=== PATIENT | female | born 1995 | race Caucasian/White ===

== ENCOUNTER 2018-04-26 13:56 | Inpatient (IN) ==
[2018-04-26 15:40] LABS: Baso % (Auto) 0.2 % (0.0-2.0); Eos % (Auto) 0.2 % (0.0-4.0); Hematocrit 41.5 % (35.0-46.0); Hemoglobin 13.8 gm/dL (11.6-15.3); Lymph # (Auto) 1.9 th/mm3 (1.0-4.8); Lymph % (Auto) 19.9 % (9.0-44.0); Mean Corpuscular HGB Conc 33.2 % (32.0-36.0); Mean Corpuscular Hemoglobin 30.5 pg (27.0-34.0); Mean Corpuscular Volume 91.7 fL (80.0-100.0); Mean Platelet Volume 8.4 fL (7.0-11.0); Mono # (Auto) 0.7 th/mm3 (0.0-0.9); Neut # (Auto) 7.1 th/mm3 (1.8-7.7); Neut % (Auto) 72.7 % (16.0-70.0); Platelet Count 230 th/mm3 (150-450); Red Blood Count 4.53 mil/mm3 (4.00-5.30); Red Cell Distribution Width 13.2 % (11.6-17.2); White Blood Count 9.8 th/mm3 (4.0-11.0)
[2018-04-26] MEDS ORDERED: Influenza (Quadrivalent) Vaccine 0.5 ML Syringe IM ONE (15:45)
[2018-04-26 15:48] LABS: Amphetamine Screen,Urine Neg (Neg); Barbiturate Screen,Urine Neg (Neg); Cannabinoid Screen,Urine Neg (Neg); Cocaine Screen,Urine Neg (Neg)
[2018-04-26 15:56] LABS: Bacteria,Urine Occasional /hpf; Bilirubin,Urine Negative (Negative); Clarity,Urine Hazy (Clear); Color,Urine Yellow (Yellw/Straw); Glucose,Urine (UA) Negative (Negative); Leukocyte Esterase,Urine Negative (Negative); Mucus,Urine Few /lpf (Occasional); Nitrite,Urine Negative (Negative); Opiate Screen,Urine Neg (Neg); Specific Gravity,Urine 1.009 (1.002-1.035); Squamous Epithelial Cell,Urine 5 /hpf (0-5)
[2018-04-26] MEDS ORDERED: fentaNYL Citrate Inj 100 MCG/2 ML Ampul IV.PUSH PRN ×2 (16:02)
[2018-04-26] MEDS ORDERED: Naloxone Inj 0.4 MG/ML Vial IV.PUSH PRN (16:02)
[2018-04-26] MEDS ORDERED: Sod Chloride 0.9% Inj 1,000 ML IV.CONT PRN (16:02)
[2018-04-26] MEDS ORDERED: Sodium Chlor 0.9% Inj 500 ML IV.SIG PRN (16:02)
[2018-04-26] MEDS ORDERED: Oxytocin 30 Units/500ml Premix 30 UNITS/500 ML BAG IV.SIG ONE (16:15)
[2018-04-26] MEDS ORDERED: Citric Acid/Sodium Citrate Liq 30 ML UDC PO SCH (16:15)
[2018-04-26] MEDS ORDERED: Oxytocin 30 Units/500ml Premix 30 UNITS/500 ML BAG IV.SIG PRN (17:16)
--- NOTE | 2018-04-26 17:23 | P.HPOB ---
History of Present Illness Service: obstetrics Primary Care Physician: No Primary Care Physician History of Present Illness: 22 yo 39 weeks with cervix 2-3 cm and few contractions. Here for induction and augment. Teresa sorto had previous of 9# Weeks Gestation:: 39 Para: 1 : 2 - Inpatient Certification I certify that the inpatient services were ordered in accordance with Medicare regulations governing the order. This includes certification that hospital inpatient services are reasonable and necessary and in the case of services not specified as inpatient-only under 42 CFR 419.22(n), that they are appropriately provided as inpatient services in accordance to with the 2-midnight benchmark under 43 CFR 412.3(e) Estimated Total Length of Stay (Days): 2 Plans for Post Hospital Care: Home Review of Systems All other systems reviewed negative except as stated [facility] - History History Provided By: Patient - Medical / Surgical Hx Neg / Unobtainable Medical Problems Denied: Yes Surgical History: No Previous Surgery ( x1) - Social History I have reviewed the patient's Social History: Yes - Tobacco History Second Hand Smoke Exposure: No Tobacco Use In Past 30 Days: No - Travel History Recent Travel in the [place] Within the Last 8 Weeks: No Recent Travel Out of the Country Within the Last 8 Weeks: No - Immunization History Tetanus Immunization: Unable to Assess Hx Influenza Vaccine This Season: No Medications and Allergies Active Medications: Active Medications Citric Acid/Sodium Citrate (Sodium Citrate/Citric Acid Liq) 30 ml PO [facility] Stop: 04/30/18 16:14 Fentanyl Citrate (Fentanyl Inj) 50 mcg IV.PUSH Q1H PRN PRN Reason: Pain Scale 3 - 5 Fentanyl Citrate (Fentanyl Inj) 100 mcg IV.PUSH Q1H PRN PRN Reason: PAIN SCALE 6 TO 10 Lactated Ringer's (Lr 1000 Ml Inj) 1,000 mls @ 3,000 mls/hr IV.SIG UNSCH PRN PRN Reason: compromise or epidural Sodium Chloride (Ns Inj) 500 mls @ 1,000 mls/hr IV.SIG UNSCH PRN PRN Reason: SEE LABEL COMMENTS Sodium Chloride (Ns Inj) 1,000 mls @ 100 mls/hr IV.CONT .Q10H PRN PRN Reason: SEE LABEL COMMENTS Lactated Ringer's (Lr 1000 Ml Inj) 1,000 mls @ 125 mls/hr IV.CONT .Q8H [place] Oxytocin (Pitocin 30 Units/Ns 500 Ml Premix) 30 units in 500 mls @ 2 mls/hr IV.SIG TITRATE PRN; Protocol PRN Reason: For induction of labor Lidocaine HCl (Xylocaine 1% Inj) 0.1 ml I-DERMAL PRN PRN PRN Reason: For IV start Stop: 04/29/18 16:01 Lidocaine HCl (Xylocaine 1% Inj) 10 ml SQ UNSCH X1 PRN PRN Reason: FOR EPISIOTOMY REPAIR Stop: 04/28/18 16:29 Mineral Oil (Muri-Lube Oil) 10 ml TOPICAL PRN PRN PRN Reason: PRN perineal massage Naloxone HCl (Narcan Inj) 0.1 mg IV.PUSH Q2M PRN PRN Reason: for opiate reversal Allergies Allergy/AdvReac Type Severity Reaction Status Date / Time No Known Allergies Allergy Verified 04/26/18 15:13 Home Medications Medication Instructions Recorded Confirmed Type PNV #[id number] 1 tab PO DAILY 04/26/18 04/26/18 History Exam Vital signs: Vital Signs 04/26/18 14:22 Temperature 98.3 F Pulse Rate 109 H Respiratory Rate 18 Blood Pressure 123/80 Intake & Output 04/25/18 04/26/18 04/26/18 18:59 06:59 18:59 Weight 104.355 kg Other: Weight On Admission 104.326 kg - Constitutional no acute distress - Routine HEENT Exam Head: Present: normocephalic - Routine Neck Exam Present: full ROM - Routine Respiratory Exam Present: CTA bilaterally - Routine Cardiovascular Exam Present: RRR - Routine Abdominal Exam Present: soft, normoactive bowel sounds - Routine Extremities Exam Present: full ROM - Routine Skin Exam Present: intact - Routine Neurological Exam Present: alert, oriented X3 - Additional findings Additional findings: cervix 2-3/80 -2 Results - Labs CBC & Chem 7: 04/26/18 14:43 Labs: Laboratory Results - last 24 hr 04/26/18 04/26/18 04/26/18 14:43 14:43 14:43 WBC 9.8 RBC 4.53 Hgb 13.8 Hct 41.5 MCV 91.7 MCH 30.5 MCHC 33.2 RDW 13.2 Plt Count 230 MPV 8.4 Neut % (Auto) 72.7 H Lymph % (Auto) 19.9 [place] % (Auto) 7.0 Eos % (Auto) 0.2 Baso % (Auto) 0.2 Neut # (Auto) 7.1 Lymph # (Auto) 1.9 [place] # (Auto) 0.7 Eos # (Auto) 0.0 Baso # (Auto) 0.0 WBC Differential . Differential Comment Auto diff final Urine Color Yellow Urine Clarity Hazy H Urine pH 6.0 Ur Specific [place] 1.009 Urine Protein Negative Urine Glucose (UA) Negative Urine Ketones Negative Urine Occult Blood Negative Urine Nitrate Negative Urine Bilirubin Negative Urine Urobilinogen Less than 2 Ur Leukocyte Esterase Negative Urine WBC 1 Ur Squamous Epith Cells 5 Urine Bacteria Occasional H Urine Mucus Few H Micro UA Comment Culture not ind Ur Microscopic Review Not Reportable Urine Culture Comments Culture not ind Urine Opiates Screen Ur Barbiturates Screen Ur Amphetamines Screen U Benzodiazepines Scrn Urine Cocaine Screen U Cannabinoids Screen Blood Type B Positive Antibody Screen Negative 04/26/18 14:43 WBC RBC Hgb Hct MCV MCH MCHC RDW Plt Count MPV Neut % (Auto) Lymph % (Auto) [place] % (Auto) Eos % (Auto) Baso % (Auto) Neut # (Auto) Lymph # (Auto) [place] # (Auto) Eos # (Auto) Baso # (Auto) WBC Differential Differential Comment Urine Color Urine Clarity Urine pH Ur Specific [place] Urine Protein Urine Glucose (UA) Urine Ketones Urine Occult Blood Urine Nitrate Urine Bilirubin Urine Urobilinogen Ur Leukocyte Esterase Urine WBC Ur Squamous Epith Cells Urine Bacteria Urine Mucus Micro UA Comment Ur Microscopic Review Urine Culture Comments Urine Opiates Screen Neg Ur Barbiturates Screen Neg Ur Amphetamines Screen Neg U Benzodiazepines Scrn Neg Urine Cocaine Screen Neg U Cannabinoids Screen Neg Blood Type Antibody Screen Group B Strep: Negative Caprini VTE Risk Assessment Caprini VTE Risk Assessment: No/Low Risk (score <= 1) Caprini Risk Assessment Model: Point Value = 1 Point Value = 2 Point Value = 3 Point Value = 5 Age 41-60 Minor surgery BMI > 25 kg/m2 Swollen legs Varicose veins or History of unexplained or recurrent spontaneous Oral contraceptives or hormone replacement Sepsis (< 1 month) Serious lung disease, including pneumonia (< 1 month) Abnormal pulmonary function Acute myocardial infarction Congestive heart failure (< 1 month) History of inflammatory bowel disease Medical patient at bed rest Age 61-74 Arthroscopic surgery Major open surgery (> 45 min) Laparoscopic surgery (> 45 min) Malignancy Confined to bed (> 72 hours) Immobilizing plaster cast Central venous access Age >= 75 History of VTE Family history of VTE Factor V Leiden Prothrombin [id number] Lupus anticoagulant Anticardiolipin antibodies Elevated serum homocysteine Heparin-induced thrombocytopenia Other congenital or acquired thrombophilia Stroke (< 1 month) Elective arthroplasty Hip, pelvis, or leg fracture Acute spinal cord injury (< 1 month) Prophylaxis Regimen: Total Risk Factor Score Risk Level Prophylaxis Regimen 0-1 Low Early ambulation 2 Moderate Order ONE of the following: *Sequential Compression Device (SCD) *Heparin 5000 units SQ BID 3-4 Higher Order ONE of the following medications: *Heparin 5000 units SQ TID *Enoxaparin/Lovenox 40 mg SQ daily (WT < 150 kg, CrCl > 30 mL/min) *Enoxaparin/Lovenox 30 mg SQ daily (WT < 150 kg, CrCl > 10-29 mL/min) *Enoxaparin/Lovenox 30 mg SQ BID (WT < 150 kg, CrCl > 30 mL/min) AND/OR *Sequential Compression Device (SCD) 5 or more Highest Order ONE of the following medications: *Heparin 5000 units SQ TID (Preferred with Epidurals) *Enoxaparin/Lovenox 40 mg SQ daily (WT < 150 kg, CrCl > 30 mL/min) *Enoxaparin/Lovenox 30 mg SQ daily (WT < 150 kg, CrCl > 10-29 mL/min) *Enoxaparin/Lovenox 30 mg SQ BID (WT < 150 kg, CrCl > 30 mL/min) AND *Sequential Compression Device (SCD) Assessment and Plan - Diagnosis (1) 39 weeks gestation of Code(s): Z3A.39 - 39 weeks gestation of Status: Acute - Plan AROM pitocin
[2018-04-26] MEDS ORDERED: Pantoprazole Inj 40 MG Vial IV.PUSH ONE (18:30)
[2018-04-26] MEDS ORDERED: Bupivacaine PF 0.25% Inj 10 ML Vial ONE (20:34)
[2018-04-26] MEDS ORDERED: Lidocaine PF 1% Inj 5 ML Vial ONE (20:34)
[2018-04-26] MEDS ORDERED: Lidocaaine 1.5%/Epinephrine 1:200,000 PF Inj 5 ML Amp ONE (20:34)
[2018-04-26] MEDS ORDERED: fentaNYL 2MCG-Bupiv 0.125% Epi 150 ML EPIDURAL ONE (20:36)
[2018-04-27] MEDS ORDERED: Lidocaine 1% Inj 50 ML Vial ONE (00:12)
[2018-04-27] MEDS ORDERED: Acetaminophen 325 MG Tablet PO PRN (01:02)
[2018-04-27] MEDS ORDERED: Zolpidem Tartrate 5 MG Tablet PO PRN (01:02)
[2018-04-27] MEDS ORDERED: Witch Hazel 50%/Glyderin 12.5% 40 Pad Jar RECTAL PRN (01:02)
[2018-04-27] MEDS ORDERED: Oxytocin 30 Units/500ml Premix 30 UNITS/500 ML BAG IV.CONT PRN (01:02)
[2018-04-27] MEDS ORDERED: Naloxone Inj 0.4 MG/ML Vial IV.PUSH PRN (01:02)
[2018-04-27] MEDS ORDERED: Bisacodyl 10 MG Supp RECTAL PRN (01:02)
[2018-04-27] MEDS ORDERED: Benzocaine 20% Top Spray 60 ML Can TOPICAL PRN (01:02)
--- NOTE | 2018-04-27 01:08 | P.OBDELI ---
Weeks Gestation: 39 Patient Started Active Labor: Yes Active Labor Start Date: 04/26/18 Active Labor Start Time: 17:00 Medical Induction of Labor: No Artificial Rupture of Membrane: Yes Artificial ROM Date: 04/26/18 Artificial ROM Time: 17:00 Anesthesia: Epidural Episiotomy: none Vaginal Delivery: Normal Presentation: Occiput anterior Nuchal Cord: x1 Delayed Cord Clamping (45 sec): Yes Placenta: Spontaneous delivery, Intact, 3 vessel cord Repair: Chromic running Estimated blood loss (mL): 300 : Female, Single
[2018-04-27] MEDS ORDERED: fentaNYL 2MCG-Bupiv 0.125% Epi 150 ML EPIDURAL PRN (01:21)
[2018-04-27] MEDS ORDERED: fentaNYL Citrate Inj 100 MCG/2 ML Ampul EPIDURAL ONE (01:21)
[2018-04-27] MEDS: Senna/Docusate Sodium 8.6/50 MG Tablet PO SCH ×2 (08:59→20:04)
[2018-04-27] MEDS ORDERED: Measles/Mumps/Rubella Vaccine Inj 0.5 ML Vial SQ ONE (16:00)
[2018-04-27] MEDS ORDERED: Diphtheria/Tetanus/Pertussis Vaccine Inj 0.5 ML Syringe IM ONE (16:00)
[2018-04-28] MEDS: Senna/Docusate Sodium 8.6/50 MG Tablet PO SCH (09:16)
[2018-04-28 09:53] VITALS: BP 127/70; PULSE 80; RESP 16; TEMP 98
--- NOTE | 2018-04-28 16:37 | MD ---
cc: Roc Farmer MD, Dr. DATE OF DISCHARGE: 04/28/2018 ADMITTING DIAGNOSIS: Term . DISCHARGE DIAGNOSES: 1. Term . 2. Delivery. HISTORY OF PRESENT ILLNESS: The patient is a 22-year-old white female; para 1-0-0-1 with an EDC of 04/30/2018. HOSPITAL COURSE: She was admitted for delivery on 04/26/2018; had a spontaneous vaginal delivery. did well. Discharged home excellent condition on 04/28/2018. She was advised NPV, light activity, return to Dr. Almita Reid in [address] Lezama left her a prescription for Percocet 5 one to two p.o. 4 hours p.r.n. pain; #12. She will call with any abnormal symptoms. MD MIKE Salguero/eileen/ , 10:03 AM , 11:08 AM MTDD
== END 2018-04-28 12:00 | disposition home or self-care (01) ==
LOC: H2E 13:56 → H1EA 04-27 06:24
PROVIDERS: ADMIT Obstetrics & Gynecology; ATTEND Obstetrics & Gynecology